=== PATIENT | female | born 1955 | race Caucasian/White ===

== ENCOUNTER 2018-06-20 10:31 | Emergency (ER) | payer MEDICARE ==
[~2018-06-20] VITALS: Ht 160 cm; Wt 100.0 kg
[~2018-06-20 10:31] MED LIST: CELEXA20 MG PO; ENDOCET 10-3251 TAB; ENDOCET 10-3251 TAB PO; PHENERGAN25 M1 PO; PROZAC20 MG PO; ROBAXIN500 MG PO; SYNTHROID125 MCG PO; XANAX1 MG PO
[2018-06-20 10:44] VITALS: Ht 160 cm; Wt 100.0 kg
[2018-06-20 11:10] LABS: BASOPHILS 0.2 % (0-2); EOSINOPHILS 2.4 % (0-7); HEMATOCRIT 45.6 % (36.0-48.0); IMMATURE GRANULOCYTES 0.3 % (0-5); LYMPHOCYTES 30.3 % (15-50); MCH 30.4 pg (26.0-34.0); MCHC 32.9 g/dL (31.0-37.0); MCV 92.3 fL (80.0-100.0); MEAN PLATELET VOLUME 10.3 fL (7.4-10.4); MONOCYTES 10.8 % (2-11); PLATELET COUNT 290 10x3/uL (130-400); RBC 4.94 10x6/uL (4.00-5.40); WBC 8.6 10x3/uL (4.8-10.8)
[2018-06-20 11:27] LABS: ALBUMIN 3.8 g/dL (3.4-5.0); ALKALINE PHOSPHATASE 473 U/L (46-116); ALT (SGPT) 447 U/L (10-68); BILIRUBIN - TOTAL 0.56 mg/dL (0.2-1.3); CALC OSMOLALITY 274 mosm/kg (275-300); CALCIUM 9.8 mg/dL (8.5-10.1); CARBON DIOXIDE 31.9 mmol/L (21.0-32.0); CHLORIDE - SERUM 98 mmol/L (98-107); CREATININE - SERUM 0.9 mg/dL (0.6-1.3); GLUCOSE 105 mg/dL (74-106); POTASSIUM - SERUM 3.9 mmol/L (3.5-5.1); PROTEIN - SERUM 8.7 g/dL (6.4-8.2); SODIUM 136 mmol/L (136-145); UREA NITROGEN 21 mg/dL (7-18); eGFR NON AFRICAN AMERICAN 67 mL/min (90-120)
[2018-06-20 11:37] LABS: BILIRUBIN - DIRECT 0.31 mg/dL (0.00-0.30); BILIRUBIN - INDIRECT 0.25 mg/dL (0.00-1.00); CKMB 0.6 U/L (0.0-3.6)
[2018-06-20 11:39] LABS: TROPONIN-I < 0.017 ng/mL (0.000-0.060)
[2018-06-20] MEDS ORDERED: IBUPROFEN800 MG PO (13:14)
[2018-06-20] MEDS ORDERED: CYCLOBENZAPRINE10 MG PO (13:14)
[2018-06-20 13:15] VITALS: BP 132/68
== END 2018-06-20 13:33 | disposition home or self-care (01) ==
LOC: D.ER 10:31
PROVIDERS: Family Medicine
DX: R94.5 Abnormal results of liver function studies (principal); Z86.73 Personal history of transient ischemic attack (TIA), and cerebral infarction without residual deficits

== ENCOUNTER 2018-07-23 03:06 | Emergency (ER) | payer MEDICARE, MEDICAID ==
[~2018-07-23] VITALS: Ht 160 cm; Wt 103.2 kg
[~2018-07-23 03:06] MED LIST changes: +CYCLOBENZAPRINE10 MG PO; +IBUPROFEN800 MG PO
[2018-07-23 03:15] VITALS: Ht 160 cm; Wt 103.2 kg
[2018-07-23 03:49] LABS: BASOPHILS 0.1 % (0-2); EOSINOPHILS 0.2 % (0-7); HEMOGLOBIN 13.5 g/dL (12-16); IMMATURE GRANULOCYTES 0.1 % (0-5); LYMPHOCYTES 4.1 % (15-50); MCH 30.3 pg (26.0-34.0); MCHC 32.9 g/dL (31.0-37.0); MCV 91.9 fL (80.0-100.0); MEAN PLATELET VOLUME 10.4 fL (7.4-10.4); MONOCYTES 3.6 % (2-11); NEUTROPHILS 91.9 % (40-80); PLATELET COUNT 241 10x3/uL (130-400); RBC 4.46 10x6/uL (4.00-5.40); RDW 13.2 % (11.5-14.5); WBC 9.7 10x3/uL (4.8-10.8)
[2018-07-23 04:02] LABS: ALBUMIN 3.7 g/dL (3.4-5.0); ANION GAP 12.5 mmol/L (8-16); BILIRUBIN - TOTAL 2.81 mg/dL (0.2-1.3); CALCIUM 8.4 mg/dL (8.5-10.1); CARBON DIOXIDE 27.8 mmol/L (21.0-32.0); POTASSIUM - SERUM 3.3 mmol/L (3.5-5.1); PROTEIN - SERUM 7.4 g/dL (6.4-8.2)
[2018-07-23 07:27] LABS: APPEARANCE HAZY (CLEAR); BILIRUBIN NEGATIVE (NEGATIVE); COLOR YELLOW (YELLOW); GLUCOSE NEGATIVE (NEGATIVE); KETONE NEGATIVE (NEGATIVE); NITRITE NEGATIVE (NEGATIVE); PROTEIN NEGATIVE (NEGATIVE)
[2018-07-23 07:28] LABS: BACTERIA FEW /hpf (NONE SEEN); EPITHELIAL CELLS RARE /hpf (0-5); MUCUS <1+ /lpf (NONE SEEN); RED CELLS - URINE RARE /hpf (0-5); TALC POWDER CRYSTALS RARE /hpf (NONE SEEN); WHITE CELLS - URINE 0-5 /hpf (0-5)
[2018-07-23] MEDS ORDERED: PROTONIX40 MG PO (08:34)
[2018-07-23 10:53] VITALS: BP 126/060
[2018-07-24 13:19] LABS: HEPATITIS C ANTIBODY 0.1 (0.0-0.9)
== END 2018-07-23 10:55 | disposition home or self-care (01) ==
LOC: D.ER 03:06
PROVIDERS: Family Medicine
DX: K75.9 Inflammatory liver disease, unspecified (principal); K21.9 Gastro-esophageal reflux disease without esophagitis

== ENCOUNTER 2018-11-06 17:24 | Emergency (ER) | payer MEDICARE, MEDICAID ==
[~2018-11-06 17:24] MED LIST changes: +PROTONIX40 MG PO
[2018-11-06 17:28] VITALS: Ht 160 cm
[2018-11-06 18:38] LABS: BASOPHILS 0.4 % (0-2); EOSINOPHILS 2.5 % (0-7); HEMATOCRIT 37.8 % (36.0-48.0); HEMOGLOBIN 12.3 g/dL (12-16); IMMATURE GRANULOCYTES 0.1 % (0-5); MCH 30.1 pg (26.0-34.0); MCHC 32.5 g/dL (31.0-37.0); MCV 92.4 fL (80.0-100.0); MEAN PLATELET VOLUME 9.8 fL (7.4-10.4); MONOCYTES 8.4 % (2-11); NEUTROPHILS 50.6 % (40-80); RBC 4.09 10x6/uL (4.00-5.40); RDW 12.9 % (11.5-14.5); WBC 7.3 10x3/uL (4.8-10.8)
[2018-11-06 18:40] LABS: PLATELET COUNT 331 10x3/uL (130-400)
[2018-11-06 18:57] LABS: UDS - AMPHET NEGATIVE QUAL (NEGATIVE); UDS - BARB NEGATIVE QUAL (NEGATIVE); UDS - BENZO POSITIVE QUAL (NEGATIVE); UDS - COCAINE NEGATIVE QUAL (NEGATIVE); UDS - OPIATE POSITIVE QUAL (NEGATIVE); UDS - PCP NEGATIVE QUAL (NEGATIVE); UDS - THC NEGATIVE QUAL (NEGATIVE)
[2018-11-06 19:19] LABS: CALC OSMOLALITY 279 mosm/kg (275-300); CALCIUM 8.8 mg/dL (8.5-10.1); CARBON DIOXIDE 25.1 mmol/L (21.0-32.0); CHLORIDE - SERUM 103 mmol/L (98-107); CREATININE - SERUM 0.8 mg/dL (0.6-1.3); GLUCOSE 109 mg/dL (74-106); POTASSIUM - SERUM 3.7 mmol/L (3.5-5.1); SODIUM 139 mmol/L (136-145); THYROID STIMULATING HORMONE 0.58 uIU/mL (0.36-3.74); UREA NITROGEN 14 mg/dL (7-18); eGFR NON AFRICAN AMERICAN 77 mL/min (90-120)
[2018-11-06 19:28] VITALS: BP 147/87
== END 2018-11-06 19:28 | disposition home or self-care (01) ==
LOC: D.ER 17:24
PROVIDERS: Family Medicine
DX: F41.9 Anxiety disorder, unspecified (principal); Z76.5 Malingerer [conscious simulation]; Z86.73 Personal history of transient ischemic attack (TIA), and cerebral infarction without residual deficits

== ENCOUNTER 2019-01-25 18:35 | Emergency (ER) | payer MEDICARE, MEDICAID ==
[~2019-01-25] VITALS: Ht 160 cm; Wt 100.9 kg
[2019-01-25 18:52] VITALS: Ht 160 cm; Wt 100.9 kg
[2019-01-25] MEDS ORDERED: VOLTAREN75 MG PO (19:46)
[2019-01-25 20:20] VITALS: BP 116/56
[2019-01-26] MEDS ORDERED: MELATONIN 3 MG1 TAB PO (17:09)
== END 2019-01-25 20:20 | disposition home or self-care (01) ==
LOC: D.ER 18:35
DX: S89.91XA Unspecified injury of right lower leg, initial encounter (principal); W18.30XA Fall on same level, unspecified, initial encounter; Y93.89 Activity, other specified; Y92.019 Unspecified place in single-family (private) house as the place of occurrence of the external cause

== ENCOUNTER 2019-01-26 15:34 | Inpatient (IN) | payer MEDICARE, MEDICAID ==
[~2019-01-26] VITALS: Ht 152.4 cm; Wt 100.7 kg
[~2019-01-26 15:34] MED LIST changes: +VOLTAREN75 MG PO
[2019-01-26] MEDS ORDERED: MELATONIN 3 MG1 TAB PO (17:09)
[2019-01-26 17:10] VITALS: BP 116/72
[2019-01-26 17:17] VITALS: BP 116/72
--- NOTE | 2019-01-26 17:30 | NUR ---
PATIENT ADMITTED TO ROOM 2213 FROM ER. C/O PAIN TO RIGHT LEG. IMMOBILIZER IN PLACE. LUNGS CLEAR IN ALL LIZAMA BILATERALLY. HEART SOUNDS HEARD IN ALL LIZAMA AT REGULAR RATE AND RHYTHM. DILAUDID MACHINE SETTER AUTOMATIC PUMP IN PLACE. IV STARTED IN RIGHT FOREARM. HAT PLACED IN TOILET FOR UA. PATIENT EDUCATED NOT TO USE BR WITHOUT ASSISTANCE AND TO URINATE IN HAT. WILL CONTINUE TO MONITOR.
[2019-01-26 17:49] LABS: BASOPHILS 0.2 % (0-2); EOSINOPHILS 2.9 % (0-7); HEMATOCRIT 33.3 % (36.0-48.0); HEMOGLOBIN 10.6 g/dL (12-16); IMMATURE GRANULOCYTES 0.1 % (0-5); LYMPHOCYTES 25.7 % (15-50); MCH 29.9 pg (26.0-34.0); MCHC 31.8 g/dL (31.0-37.0); MCV 94.1 fL (80.0-100.0); MONOCYTES 7.7 % (2-11); NEUTROPHILS 63.4 % (40-80); PLATELET COUNT 293 10x3/uL (130-400); RBC 3.54 10x6/uL (4.00-5.40); RDW 13.5 % (11.5-14.5); WBC 10.1 10x3/uL (4.8-10.8)
[2019-01-26 18:19] LABS: ANION GAP 11.8 mmol/L (8-16); CALCIUM 8.4 mg/dL (8.5-10.1); CARBON DIOXIDE 28.4 mmol/L (21.0-32.0); CREATININE - SERUM 0.9 mg/dL (0.6-1.3); POTASSIUM - SERUM 4.2 mmol/L (3.5-5.1)
--- NOTE | 2019-01-26 19:55 | NUR ---
PT RESTING IN BED. ALERT AND ORIENTED. NO SINGS OF DISTRESS. BREATHING EVEN AND UNLABORED. PT STATES NO PROBLEMS AT THIS TIME. IV SITE RT FA IV DRESSING CLEAN DRY AND INTACT. NO SIGNS OF INFECTION. SKIN CLEAN DRY AND INTACT. BOWEL SOUNDS ACTIVE. RT KNEE EMOBILIZER. NO LOWER LEG SWELLING PRESENT. WILL CONTINUE PLAN OF CARE. CALL LIGHT IN REACH. BED LOWERED AND LOCKED. BED RAILS UP X2.
[2019-01-26 22:40] VITALS: BP 101/51
[2019-01-27] VITALS (7 sets, daily range): BP systolic 87–108; BP diastolic 44–71; Ht 152.4 cm; Wt 100.7 kg
--- NOTE | 2019-01-27 04:45 | NUR ---
I have reviewed this patient and I concur with the Shift Assessment completed by the Licensed Practical Nurse today this shift.
--- NOTE | 2019-01-27 08:08 | NUR ---
ALERT AND ORIENTED X 3. LUNGS CLEAR IN ALL LIZAMA BILATERALLY. HEART SOUNDS HEARD IN ALL LIZAMA. REGULAR RATE AND RHYTHM. STATES NO PROBLEMS MOVING BOWELS. DENIES NEEDS AT THIS TIME. WILL CONTINUE TO MONITOR.
--- NOTE | 2019-01-27 09:18 | NUR ---
PRN TORADOL GIVEN FOR PAIN 04/27. WILL MONITOR.
[2019-01-27 10:15] LABS: APPEARANCE CLEAR (CLEAR); BACTERIA FEW /hpf (NONE SEEN); BILIRUBIN NEGATIVE (NEGATIVE); COLOR YELLOW (YELLOW); EPITHELIAL CELLS 0-5 /hpf (0-5); GLUCOSE NEGATIVE (NEGATIVE); KETONE NEGATIVE (NEGATIVE); NITRITE NEGATIVE (NEGATIVE); PROTEIN NEGATIVE (NEGATIVE); WHITE CELLS - URINE 0-5 /hpf (0-5)
[2019-01-27 10:16] LABS: MUCUS <1+ /lpf (NONE SEEN)
[2019-01-27 11:03] LABS: % SATURATION 10 % (15-55); IRON 31 ug/dl (35-150); TOTAL IRON BIND CAPACITY 287 ug/dl (260-445); UNSAT IRON BIND CAPACITY 256 ug/dl (150-375)
--- NOTE | 2019-01-27 11:14 | NUR ---
PATIENT EDUCATED TO USE HAT IN TOILET WHEN USING BATHROOM TO COLLECT STOOL SAMPLE. HAT PLACED IN TOILET. PATIENT VERBALIZED UNDERSTANDING.
--- NOTE | 2019-01-27 12:23 | NUR ---
Rehab Note- Acute Inpatient prescreen order received. The patient has Human insurance and will require a PreAuth prior to an acute inpatient rehab stay. The patient is planned for surgical repair this week per MD progress notes- will need acute work up and surgery completed prior to acute inpatient rehab. Also will need PT & OT Evals for PreAuth process. Will follow at this time. Thank you for this referral! Lala Shelton RN CLinical Liaison, [facility] Rehab
--- NOTE | 2019-01-27 14:40 | NUR ---
PATIENT SITTING UP IN BED. DENIES PAIN. DENIES NEEDS. ATE 100% LUNCH.
--- NOTE | 2019-01-27 16:11 | NUR ---
PRN TORADOL GIVEN FOR BREAKTHROUGH PAIN PER PATIENT REQUEST. WILL CONTINUE TO MONITOR.
--- NOTE | 2019-01-27 16:38 | NUR ---
PATIENT SLEEPING. WILL CONTINUE TO MONITOR
--- NOTE | 2019-01-27 17:22 | NUR ---
IV TO RFA INFILTRATED. RESITED TO LEFT WRIST. WARM COMPRESS APPLIED TO RFA. WILL CONTINUE TO MONITOR.
--- NOTE | 2019-01-27 18:00 | NUR ---
PATIENT SITTING UP IN BED EATING DINNER. DENIES PAIN. DENIES NEEDS. WILL CONTINUE TO MONITOR.
--- NOTE | 2019-01-27 19:55 | NUR ---
PT RESTING IN BED. ALERT AND ORIENTED. PT STATES NO PROBLEMS AT THIS TIME. NO SIGNS OF DISTRESS. BREATHING EVEN AND UNLABORED. IV SITE LT WRIST DRESSING CLEAN DRY AND INTACT. NO SIGNS OF INFECTION. SKIN CLEAN DRY AND INTACT. NO LOWER LEG SWELLING PRESENT. WILL CONTINUE PLAN OF CARE. CALL LIGHT IN REACH. BED LOWERED AND LOCKED. BED RAILS X3.
[2019-01-28 01:33] VITALS: BP 125/79
[2019-01-28 04:48] VITALS: BP 134/80
[2019-01-28 05:18] LABS: BASOPHILS 0.2 % (0-2); EOSINOPHILS 3.2 % (0-7); HEMATOCRIT 31.2 % (36.0-48.0); HEMOGLOBIN 9.6 g/dL (12-16); IMMATURE GRANULOCYTES 0.2 % (0-5); LYMPHOCYTES 25.4 % (15-50); MCH 29.4 pg (26.0-34.0); MCHC 30.8 g/dL (31.0-37.0); MCV 95.7 fL (80.0-100.0); MEAN PLATELET VOLUME 9.6 fL (7.4-10.4); MONOCYTES 7.3 % (2-11); NEUTROPHILS 63.7 % (40-80); PLATELET COUNT 319 10x3/uL (130-400); RBC 3.26 10x6/uL (4.00-5.40); RDW 13.6 % (11.5-14.5); WBC 8.4 10x3/uL (4.8-10.8)
[2019-01-28 05:37] LABS: ANION GAP 11.1 mmol/L (8-16); CREATININE - SERUM 0.9 mg/dL (0.6-1.3); POTASSIUM - SERUM 4.1 mmol/L (3.5-5.1)
[2019-01-28 08:45] VITALS: BP 131/74
[2019-01-28 09:19] LABS: FOLATE (FOLIC ACID) - SERUM >20.0 ng/mL (>3.0)
[2019-01-28 12:40] VITALS: BP 137/64
--- NOTE | 2019-01-28 14:27 | NUR ---
INCENTIVE SPIROMETER EXPLAINED TO PATIENT. RETURNED DEMONSTRATION. IMMOBILIZER PLACED ON PATIENT AND REMINDED TO PRESS CALL BUTTON IF NEEDS TO GET UP.
--- NOTE | 2019-01-28 15:23 | MORECARE ---
CASE MANAGEMENT DISCHARGE SUMMARY PATIENT: MAMTA RAMIREZ UNIT: [id number] ADM DATE: 01/26/19 AGE: 63 : 57 SEX: F ROOM/BED: D.2213 AUTHOR: KEYA,DOC PHYSICIAN: REFERRING PHYSICIAN: EVELINE WHITING MD DATE OF SERVICE: 01/28/19 Discharge Plan Patient Name: MAMTA RAMIREZ Facility: [facility]:[place] : 1955 Planned Disposition: Group Home Facility Anticipated Discharge Date: Discharge Date: Expected LOS: Initial Reviewer: [email or web address] Initial Review Date: 01/26/2019 Generated: 01/28/19 4:22 pm Comments DCP- Discharge Planning Updated by [id number]: Stephanie Lopez on 01/28/19 2:[address] Patient Name: MAMTA RAMIREZ Admission Status: Urgent Accout number: [id number] Admission Date: 01-26-2019 : 1955 Admission Diagnosis: Attending: EVELINE WHITING Current LOS: 2 Anticipated DC Date: Planned Disposition: Group Home Facility Primary Insurance: [employer] CHOICE PPO MCR ADVANT Discharge Planning Comments: CM met with patient to complete initial dc planning assessment. CM educated patient on the CM role and verbal consent given by patient to complete assessment. Patient lives at home by herself where she is independent with her care. At discharge patient plans to go to [facility] and feels this is a safe discharge. RACIEL signed with [facility] and placed in the patient's chart. Patient has cane, crutches, and a shower chair with a handicap bathroom. CM will continue to follow and will assist as needed with dc plans/needs. Hydroelectric Plant Operator: Stephanie Lopez DCPIA - Discharge Planning Initial Assessment Updated by [email or web address]: Stephanie Lopez on 01/28/19 3:07 pm * Is the patient Alert and Oriented? Yes * How many steps to enter\exit or inside your home? * PCP Dave * [facility] * Preadmission Environment Home Alone * ADLs Independent * Equipment Cane Crutch Shower Chair * Verbal permission to speak to the caregivers and representatives has been obtained from the patient. N/A * Community resources currently utilized None * Additional services required to return to the preadmission environment? Yes * Can the patient safely return to the preadmission environment? No * Has this patient been hospitalized within the prior 30 days at any hospital? No Patient Name: MAMTA RAMIREZ Page [phone] at 1523 All edits/amendments must be made on the electronic document DICTATION DATE: 01/28/191521 DIRECTOR OUTPATIENT SERVICES: CURTIS 01/28/191521 RPT#: [id number] DC DATE: STATUS: ADM IN [facility] [address] [place] [address] END OF REPORT
--- NOTE | 2019-01-28 16:04 | NUR ---
OBTAINED CONSENT FOR SURGERY TOMORROW. PATIENT STATES, "AFTER THE OPERATION WHEN I'M COMING OUT OF ANESTHESIA I FREAK OUT AND MY BODY GOES INTO SHOCK BECAUSE MY BODY KNOWS IT'S BEING INVADED." REQUESTS ANTIANXIETY MED BEFORE SURGERY. GETS XANAX Q12 PRN.
[2019-01-28 16:45] VITALS: BP 122/61
--- NOTE | 2019-01-28 18:40 | NUR ---
I have reviewed this patient and I concur with the Shift Assessment completed by the Licensed Practical Nurse today this shift.
--- NOTE | 2019-01-28 20:10 | NUR ---
PT RESTING IN BED. ALERT AND ORIENTED. NO SIGNS OF DISTRESS. BREATHING EVEN AND UNLABORED. PT STATES NO PROBLEMS AT THIS TIME. IV SITE LT WRIST DRESSING CLEAN DRY AND INTACT. NO SIGNS OF INFECTION. SKIN CLEAN DRY AND INTACT. BOWEL SOUNDS ACTIVE. NO LOWER LEG SWELLING PRESENT. SCDS ON. RT LEG KNEE EMOBLIZER ON. WILL CONTINUE PLAN OF CARE. CALL LIGHT IN REACH. BED LOWERED AND LOCKED. BED RAILS UPX1.
[2019-01-28 21:47] VITALS: BP 112/71
[2019-01-29 01:16] VITALS: BP 124/74
--- NOTE | 2019-01-29 03:34 | NUR ---
I have reviewed this patient and I concur with the Shift Assessment completed by the Licensed Practical Nurse today this shift.
[2019-01-29 04:37] VITALS: BP 120/64
[2019-01-29 04:49] LABS: BASOPHILS 0.3 % (0-2); EOSINOPHILS 6.1 % (0-7); HEMATOCRIT 31.6 % (36.0-48.0); HEMOGLOBIN 9.8 g/dL (12-16); IMMATURE GRANULOCYTES 0.2 % (0-5); LYMPHOCYTES 38.4 % (15-50); MCH 29.5 pg (26.0-34.0); MCV 95.2 fL (80.0-100.0); MEAN PLATELET VOLUME 9.5 fL (7.4-10.4); MONOCYTES 9.1 % (2-11); NEUTROPHILS 45.9 % (40-80); PLATELET COUNT 311 10x3/uL (130-400); RBC 3.32 10x6/uL (4.00-5.40); RDW 13.4 % (11.5-14.5)
[2019-01-29 05:00] LABS: WBC 5.9 10x3/uL (4.8-10.8)
[2019-01-29 05:08] LABS: ANION GAP 8.7 mmol/L (8-16); CARBON DIOXIDE 29.4 mmol/L (21.0-32.0); CREATININE - SERUM 0.9 mg/dL (0.6-1.3); POTASSIUM - SERUM 4.1 mmol/L (3.5-5.1)
--- NOTE | 2019-01-29 08:05 | NUR ---
PATIENT SITTING IN CHAIR WORKING PUZZLE. DISPLAYING SIGNS OF SEVERE ANXIETY. WORRIED ABOUT SURGERY AND BEING GIVEN DILAUDID AGAIN POST-OP. I EXPLAINED WE WOULD NOT GIVE DILAUDID. PATIENT REQUESTS DEMORAL FOR POST-OP PAIN.
[2019-01-29 10:39] VITALS: BP 134/57
--- NOTE | 2019-01-29 12:12 | MORECARE ---
CASE MANAGEMENT DISCHARGE SUMMARY PATIENT: MAMTA RAMIREZ UNIT: [id number] ADM DATE: 01/26/19 AGE: 63 : 57 SEX: F ROOM/BED: D.2213 AUTHOR: KEYA,DOC PHYSICIAN: REFERRING PHYSICIAN: EVELINE WHITING MD DATE OF SERVICE: 01/29/19 Discharge Plan Patient Name: MAMTA RAMIREZ Facility: [facility]:[place] : 1955 Planned Disposition: Long-Term Facility Anticipated Discharge Date: Discharge Date: Expected LOS: Initial Reviewer: [email or web address] Initial Review Date: 01/26/2019 Generated: 01/29/19 1:12 pm Comments DCP- Discharge Planning Updated by [id number]: Stephanie Lopez on 01/29/19 11:[address] Clinical sent to [facility], spoke with Minna DCP- Discharge Planning Updated by [email or web address]: Stephanie Lopez on 01/28/19 2:[address] Patient Name: MAMTA RAMIREZ Admission Status: Urgent Accout number: [id number] Admission Date: 01-26-2019 : 1955 Admission Diagnosis: Attending: EVELINE WHITING Current LOS: 2 Anticipated DC Date: Planned Disposition: Long-Term Facility Primary Insurance: [employer] CHOICE PPO MCR ADVANT Discharge Planning Comments: CM met with patient to complete initial dc planning assessment. CM educated patient on the CM role and verbal consent given by patient to complete assessment. Patient lives at home by herself where she is independent with her care. At discharge patient plans to go to [facility] and feels this is a safe discharge. RACIEL signed with [facility] and placed in the patient's chart. Patient has cane, crutches, and a shower chair with a handicap bathroom. CM will continue to follow and will assist as needed with dc plans/needs. Air Intercept Controller: Stephanie Lopez DCPIA - Discharge Planning Initial Assessment Updated by [email or web address]: Stephanie Lopez on 01/28/19 3:07 pm * Is the patient Alert and Oriented? Yes * How many steps to enter\exit or inside your home? * PCP Dave * [facility] * Preadmission Environment Home Alone * ADLs Independent * Equipment Cane Crutch Shower Chair * Verbal permission to speak to the caregivers and representatives has been obtained from the patient. N/A * Community resources currently utilized None * Additional services required to return to the preadmission environment? Yes * Can the patient safely return to the preadmission environment? No * Has this patient been hospitalized within the prior 30 days at any hospital? No External Providers External Provider: [facility] Next Contact Date: Service Request Date: Service Type: Resolution: Reviewer: Comments: Last DP export: 01/28/19 2:23 p Patient Name: MAMTA RAMIREZ Page [phone] at 1212 All edits/amendments must be made on the electronic document DICTATION DATE: 01/29/19 121 EARTH SCIENCES PROFESSOR: CURTIS 01/29/19 1212 RPT#: [id number] DC DATE: STATUS: ADM IN [facility] [address] [place] [address] END OF REPORT
[2019-01-29 15:11] VITALS: BP 132/60
--- NOTE | 2019-01-29 15:15 | NUR ---
RECEIVED PATIENT BACK TO FLOOR FROM [facility], RECOVERY. VS STABLE. NO COMPLAINTS OF PAIN. ASSISTED PATIENT ONTO BEDPAN - VOIDED. MADE COMFORTABLE. ALL NEEDS MET AT THIS TIME.
--- NOTE | 2019-01-29 17:39 | NUR ---
MEPILEX BORDER DRSG APPLIED TO BILAT HEELS. SCD TO LEFT LEG, PLEXI PULSE TO RIGHT FOOT. PATIENT SITTING UP IN BED EATING DINNER. APPETITE GOOD. ALL NEEDS MET AT THIS TIME.
--- NOTE | 2019-01-29 18:36 | NUR ---
PATIENT'S CALL LIGHT WAS ON SO I RESPONDED. WHEN I WENT INTO THE ROOM PATIENT WAS UP ON A CRUTCH USING IT TO REACH THE OTHER CRUTCH. I ASKED HER WHAT SHE WAS DOING UP. PATIENT STATED, "I HAVE TO GO THO THE BATHROOM." I TOLD HER I WOULD GET HER A BEDPAN. SHE STATED, "I HAVE TO TRY SOMETIME." AND PUT THE OTHER CRUTCH UNDER HER ARM. AT THAT TIME I WAS HOLDING HER UNDER THE OTHER ARM THAT HAD THE CRUTCH UNDER IT. HER RIGHT LEG GAVE OUT AND SHE WENT DOWN WITH ME HOLDING HER. THE RIGHT (OPERATIVE) KNEE HIT THE GROUND. I CALL FOR HELP OVER [facility]ALKIE. DANIEL ARECHIGA CAME IN AND TOGETHER WE LIFTED PATIENT BACK INTO THE BED. UPON EXAMINATION OF SURGICAL SITE, AMIE WERE IN PLACE AND CLOTTED BLOOD WAS STUCK TO GAUZE. AIR VALVE MECHANIC, FELIPE, CALLED. DR. LANG AND REPORTED. ORDERED LATERAL VIEW XRAY, ICE, AND ELEVATE LEG. EMERGENCY CONTACT, [place], NEIGHBOR, CALLED. LEFT MESSAGE ON MACHINE STATING THE REASON FOR CALL AND CALL BACK NUMBER.
[2019-01-29 20:20] VITALS: BP 118/59
[2019-01-30] VITALS (7 sets, daily range): BP systolic 106–132; BP diastolic 60–73
[2019-01-30 04:57] LABS: BASOPHILS 0.2 % (0-2); EOSINOPHILS 0.2 % (0-7); HEMATOCRIT 30.5 % (36.0-48.0); HEMOGLOBIN 9.7 g/dL (12-16); IMMATURE GRANULOCYTES 0.3 % (0-5); MCH 30.2 pg (26.0-34.0); MCHC 31.8 g/dL (31.0-37.0); MEAN PLATELET VOLUME 9.6 fL (7.4-10.4); MONOCYTES 6.9 % (2-11); NEUTROPHILS 74.4 % (40-80); PLATELET COUNT 312 10x3/uL (130-400); RBC 3.21 10x6/uL (4.00-5.40); RDW 13.2 % (11.5-14.5)
[2019-01-30 05:03] LABS: WBC 9.6 10x3/uL (4.8-10.8)
[2019-01-30 05:38] LABS: ANION GAP 11.2 mmol/L (8-16); CALCIUM 7.9 mg/dL (8.5-10.1); CARBON DIOXIDE 27.7 mmol/L (21.0-32.0); CREATININE - SERUM 0.9 mg/dL (0.6-1.3); POTASSIUM - SERUM 3.9 mmol/L (3.5-5.1)
--- NOTE | 2019-01-30 09:00 | NUR ---
PATIENT IN BED WITH IV INTACT. NO COMPLAINTS AT THIS TIME IV INTACT. CALL LIGHT WITHIN REACH.
--- NOTE | 2019-01-30 09:44 | MORECARE ---
CASE MANAGEMENT DISCHARGE SUMMARY PATIENT: MAMTA RAMIREZ UNIT: [id number] ADM DATE: 01/26/19 AGE: 63 : 57 SEX: F ROOM/BED: D.2213 AUTHOR: KEYA,DOC PHYSICIAN: REFERRING PHYSICIAN: EVELINE WHITING MD DATE OF SERVICE: 01/30/19 Discharge Plan Patient Name: MAMTA RAMIREZ Facility: [facility]:[place] : 1955 Planned Disposition: Group Home Facility Anticipated Discharge Date: Discharge Date: Expected LOS: Initial Reviewer: [email or web address] Initial Review Date: 01/26/2019 Generated: 01/30/19 10:43 am Comments DCP- Discharge Planning Updated by [email or web address]: Stephanie Lopez on 01/29/19 11:[address] Clinical sent to [facility], spoke with Minna DCP- Discharge Planning Updated by [id number]: Stephanie Lopez on 01/28/19 2:[address] Patient Name: MAMTA RAMIREZ Admission Status: Urgent Accout number: [id number] Admission Date: 01-26-2019 : 1955 Admission Diagnosis: Attending: EVELINE WHITING Current LOS: 2 Anticipated DC Date: Planned Disposition: Group Home Facility Primary Insurance: [employer] CHOICE PPO MCR ADVANT Discharge Planning Comments: CM met with patient to complete initial dc planning assessment. CM educated patient on the CM role and verbal consent given by patient to complete assessment. Patient lives at home by herself where she is independent with her care. At discharge patient plans to go to [facility] and feels this is a safe discharge. RACIEL signed with [facility] and placed in the patient's chart. Patient has cane, crutches, and a shower chair with a handicap bathroom. CM will continue to follow and will assist as needed with dc plans/needs. Behavioral Health Counselor: Stephanie Lopez DCPIA - Discharge Planning Initial Assessment Updated by [email or web address]: Stephanie Lopez on 01/28/19 3:07 pm * Is the patient Alert and Oriented? Yes * How many steps to enter\exit or inside your home? * PCP Dave * [facility] * Preadmission Environment Home Alone * ADLs Independent * Equipment Cane Crutch Shower Chair * Verbal permission to speak to the caregivers and representatives has been obtained from the patient. N/A * Community resources currently utilized None * Additional services required to return to the preadmission environment? Yes * Can the patient safely return to the preadmission environment? No * Has this patient been hospitalized within the prior 30 days at any hospital? No External Providers External Provider: DICK Jo Next Contact Date: Service Request Date: Service Type: Resolution: Reviewer: Comments: Last DP export: 01/29/19 11:12 a Patient Name: MAMTA RAMIREZ Page [phone] at 0944 All edits/amendments must be made on the electronic document DICTATION DATE: 01/30/19942 DAG COATER: CURTIS 01/30/19942 RPT#: [id number] DC DATE: STATUS: ADM IN [facility] [address] [place] [address] END OF REPORT
--- NOTE | 2019-01-30 09:53 | MORECARE ---
CASE MANAGEMENT DISCHARGE SUMMARY PATIENT: MAMTA RAMIREZ UNIT: [id number] ADM DATE: 01/26/19 AGE: 63 : 57 SEX: F ROOM/BED: D.2213 AUTHOR: BRYAN LAURA PHYSICIAN: REFERRING PHYSICIAN: EVELINE WHITING MD DATE OF SERVICE: 01/30/19 Discharge Plan Patient Name: MAMTA RAMIREZ Facility: [facility]:[place] : 1955 Planned Disposition: Retirement Facility Anticipated Discharge Date: Discharge Date: Expected LOS: Initial Reviewer: [email or web address] Initial Review Date: 01/26/2019 Generated: 01/30/19 10:53 am Comments DCP- Discharge Planning Updated by [id number]: Stephanie Lopez on 01/30/19 8:[address] [facility] SENT DCP- Discharge Planning Updated by [id number]: Stephanie Lopez on 01/29/19 11:[address] Clinical sent to [facility] [place] DCP- Discharge Planning Updated by [id number]: Stephanie Lopez on 01/28/19 2:[address] Patient Name: MAMTA RAMIREZ Admission Status: Urgent Accout number: [id number] Admission Date: 01-26-2019 : 1955 Admission Diagnosis: Attending: EVELINE WHITING Current LOS: 2 Anticipated DC Date: Planned Disposition: Retirement Facility Primary Insurance: [employer] CHOICE PPO MCR ADVANT Discharge Planning Comments: CM met with patient to complete initial dc planning assessment. CM educated patient on the CM role and verbal consent given by patient to complete assessment. Patient lives at home by herself where she is independent with her care. At discharge patient plans to go to [facility] and feels this is a safe discharge. RACIEL signed with [facility] and placed in the patient's chart. Patient has cane, crutches, and a shower chair with a handicap bathroom. CM will continue to follow and will assist as needed with dc plans/needs. Group Managing Director: Stephanie Lopez DCPIA - Discharge Planning Initial Assessment Updated by [email or web address]: Stephanie Lopez on 01/28/19 3:07 pm * Is the patient Alert and Oriented? Yes * How many steps to enter\exit or inside your home? * PCP Dave * [facility] * Preadmission Environment Home Alone * ADLs Independent * Equipment Cane Crutch Shower Chair * Verbal permission to speak to the caregivers and representatives has been obtained from the patient. N/A * Community resources currently utilized None * Additional services required to return to the preadmission environment? Yes * Can the patient safely return to the preadmission environment? No * Has this patient been hospitalized within the prior 30 days at any hospital? No Last DP export: 01/30/19 8:44 a Patient Name: MAMTA RAMIREZ Page [phone] at 0953 All edits/amendments must be made on the electronic document DICTATION DATE: 01/30/19951 BENEFITS SALES CONSULTANT: CURTIS 01/30/19951 RPT#: [id number] DC DATE: STATUS: ADM IN [facility] [address] [place] [address] END OF REPORT
[2019-01-30] MEDS ORDERED: PERCOCET 10-321 EAC1 PO (11:56)
[2019-01-30] MEDS ORDERED: ELIQUIS2.5 MG PO (11:57)
--- NOTE | 2019-01-30 13:00 | NUR ---
DRESSING TO KNEE CHANGED AT THIS TIME. REMOVED OLD DRESSING AND CLEANED INCISION WITH SALINE. INCISION CLEAN AND DRY WITH SUTURES INTACT. AQUACEL PLACED OVER INCISION AND BANDAID PLACED OVER SMALL SUTURE SITE. SUTURE ABOVE LEFT CELIA. PATIENT TOLERATED WITH NO PAIN. IV INTACT. NO COMPLAINTS. CALL LIGHT WITHIN REACH.
--- NOTE | 2019-01-30 15:48 | MORECARE ---
CASE MANAGEMENT DISCHARGE SUMMARY PATIENT: MAMTA RAMIREZ UNIT: [id number] ADM DATE: 01/26/19 AGE: 63 : 57 SEX: F ROOM/BED: D.2213 AUTHOR: KEYA,DOC PHYSICIAN: REFERRING PHYSICIAN: EVELINE WHITING MD DATE OF SERVICE: 01/30/19 Discharge Plan Patient Name: MAMTA RAMIREZ Facility: [facility]:[place] : 1955 Planned Disposition: Half-Way Facility Anticipated Discharge Date: Discharge Date: Expected LOS: Initial Reviewer: [email or web address] Initial Review Date: 01/26/2019 Generated: 01/30/19 4:48 pm Comments DCP- Discharge Planning Updated by [email or web address]: Stephanie Lopez on 01/30/19 2:[address] Patient is clinically accepted, waiting for insurance auth patient will go to the [facility] when her insurance approves DCP- Discharge Planning Updated by [id number]: Stephanie Lopez on 01/30/19 8:[address] [facility] SENT DCP- Discharge Planning Updated by [email or web address]: Stephanie Lopez on 01/29/19 11:[address] Clinical sent to [facility], spoke with Minna DCP- Discharge Planning Updated by [id number]: Stephanie Lopez on 01/28/19 2:[address] Patient Name: MAMTA RAMIREZ Admission Status: Urgent Accout number: [id number] Admission Date: 01-26-2019 : 1955 Admission Diagnosis: Attending: EVELINE WHITING Current LOS: 2 Anticipated DC Date: Planned Disposition: Half-Way Facility Primary Insurance: [employer] CHOICE PPO MCR ADVANT Discharge Planning Comments: CM met with patient to complete initial dc planning assessment. CM educated patient on the CM role and verbal consent given by patient to complete assessment. Patient lives at home by herself where she is independent with her care. At discharge patient plans to go to [facility] and feels this is a safe discharge. RACIEL signed with The [facility] and placed in the patient's chart. Patient has cane, crutches, and a shower chair with a handicap bathroom. CM will continue to follow and will assist as needed with dc plans/needs. Tire Balancer: Stephanie Lopez DCPIA - Discharge Planning Initial Assessment Updated by [email or web address]: Stephanie Lopez on 01/28/19 3:07 pm * Is the patient Alert and Oriented? Yes * How many steps to enter\exit or inside your home? * PCP Dave * [facility] * Preadmission Environment Home Alone * ADLs Independent * Equipment Cane Crutch Shower Chair * Verbal permission to speak to the caregivers and representatives has been obtained from the patient. N/A * Community resources currently utilized None * Additional services required to return to the preadmission environment? Yes * Can the patient safely return to the preadmission environment? No * Has this patient been hospitalized within the prior 30 days at any hospital? No Last DP export: 01/30/19 8:53 a Patient Name: MAMTA RAMIREZ Page [phone] at 1548 All edits/amendments must be made on the electronic document DICTATION DATE: 01/30/191547 FLOOR POLISHER: CURTIS 01/30/191547 RPT#: [id number] DC DATE: STATUS: ADM IN [facility] [address] [place] [address] END OF REPORT
--- NOTE | 2019-01-30 18:09 | NUR ---
PATIENT IN BED WITH IV INTACT. NO COMPLAINTS OR SIGNS OF DISTRESS. DRESSING CLEAN AND DRY. CALL LIGHT WITHIN REACH.
--- NOTE | 2019-01-30 19:30 | NUR ---
PT ALERT AND ORIENTED WHEN ENTERING THE ROOM. PT APPEARS IRRITABLE. PT STATES THAT PAIN CONTROL REGIMEN IS "RIDICULOUS". EXPLAINED TO PATIENT THAT SHE DOES HAVE PERCOCET BUT ALSO TORADAL THAT IS AN ANTI-INFLAMMATORY THAT WORKS SEPARATELY. PT STATES THAT SHE NEEDS MEDICATION THAT WILL TAKE ALL OF THE PAIN AWAY. EXPLAINED TO PATIENT THAT GOAL IS TO MAKE PAIN TOLERABLE. PT STATED UNDERSTANDING. REQUESTED WARM PACK. PT HAPPIER WHEN LEAVING ROOM. HAS CALL LIGHT IN HAND. REMOVED PLEXI PULSE THAT WAS ON RIGHT FOOT. EXPLAINED IMPORTANCE OF VENOUS RETURN DEVICES. PT STATES THAT SHE "JUST NEEDS A BREAK" AT THIS TIME. WEARING LEFT SCD. INCISION WITH DRESSING APPLIED FROM DAY SHIFT. CLEAN DRY AND INTACT. CPOC.
--- NOTE | 2019-01-30 21:00 | NUR ---
ADMINISTERED PERCOET PER REQUEST. PT RATES PAIN A 10 BUT DOES SO IN A CALM VOICE AND DOES NOT APPEAR IN ANY OTHER DISTRESS. PT STAETS PERCOCET NEVER WORKS BUT SHE WANTS TO TAKE IT RIGHT NOW ANYWAYS. WILL REASSESS PT TO SEE IF ANY OTHER MEDICATIONS WILL NEED TO BE ADMINISTERED FOR PAIN CONTROL.
--- NOTE | 2019-01-30 21:49 | NUR ---
REASSESED PT PAIN LEVEL.PT STATES "I'M STILL HURTING" ASKED PT TO RATE PAIN AND STATES 8/10. PT REQUESTED "OTHER PAIN MEDICINE" INSTRUCTED PT THAT SHE HAS TYLENOL OR TORADOL AVAILABLE. THEN INSTRUCTED ON THE TIMES BETWEEN THE TWO AND WHEN CAN HAVE AGAIN. PT STATED UNDERSTANDING. ASKS FOR TORADOL.
--- NOTE | 2019-01-30 22:04 | NUR ---
ASSISTED IN REPOSITIONING PT. ADMINISTERED TORADOL. NAZIA ROWELL ON.
--- NOTE | 2019-01-31 04:42 | NUR ---
I have reviewed this patient and I concur with the Shift Assessment completed by the Licensed Practical Nurse today this shift.
[2019-01-31 06:43] LABS: BASOPHILS 0.4 % (0-2); EOSINOPHILS 3.9 % (0-7); HEMATOCRIT 29.5 % (36.0-48.0); IMMATURE GRANULOCYTES 0.1 % (0-5); LYMPHOCYTES 35.4 % (15-50); MCH 29.4 pg (26.0-34.0); MCHC 30.5 g/dL (31.0-37.0); MCV 96.4 fL (80.0-100.0); MEAN PLATELET VOLUME 9.8 fL (7.4-10.4); MONOCYTES 10.1 % (2-11); NEUTROPHILS 50.1 % (40-80); PLATELET COUNT 297 10x3/uL (130-400); RBC 3.06 10x6/uL (4.00-5.40); RDW 13.6 % (11.5-14.5)
[2019-01-31 06:50] LABS: WBC 6.9 10x3/uL (4.8-10.8)
[2019-01-31 07:17] LABS: ANION GAP 11.4 mmol/L (8-16); CALCIUM 7.6 mg/dL (8.5-10.1); CARBON DIOXIDE 26.8 mmol/L (21.0-32.0); CREATININE - SERUM 0.9 mg/dL (0.6-1.3)
[2019-01-31 07:18] LABS: POTASSIUM - SERUM 3.2 mmol/L (3.5-5.1)
[2019-01-31 09:19] VITALS: BP 119/67
--- NOTE | 2019-01-31 10:04 | MORECARE ---
CASE MANAGEMENT DISCHARGE SUMMARY PATIENT: MAMTA RAMIREZ UNIT: [id number] ADM DATE: 01/26/19 AGE: 63 : 57 SEX: F ROOM/BED: D.2213 AUTHOR: KEYA,DOC PHYSICIAN: REFERRING PHYSICIAN: EVELINE WHITING MD DATE OF SERVICE: 01/31/19 Discharge Plan Patient Name: MAMTA RAMIREZ Facility: [facility]:[place] : 1955 Planned Disposition: Senior Care Facility Anticipated Discharge Date: Discharge Date: Expected LOS: Initial Reviewer: [email or web address] Initial Review Date: 01/26/2019 Generated: 01/31/19 11:04 am Comments DCP- Discharge Planning Updated by [email or web address]: Esther Pérez on 01/31/19 9:[address] TELEPHONE CALL TO THE [facility]. THEY ARE NOT EXPECTING TO ADMIT THIS PATIENT OVER THE WEEKEND. AWAITING INSURANCE AUTH. DCP- Discharge Planning Updated by [email or web address]: Stephanie Lopez on 01/30/19 2:[address] Patient is clinically accepted, waiting for insurance auth patient will go to the [facility] when her insurance approves DCP- Discharge Planning Updated by [id number]: Stephanie Lopez on 01/30/19 8:[address] ROSA SENT DCP- Discharge Planning Updated by [email or web address]: Stephanie Lopez on 01/29/19 11:[address] Clinical sent to [facility], spoke with Minna DCP- Discharge Planning Updated by [email or web address]: Stephanie Lopez on 01/28/19 2:[address] Patient Name: MAMTA RAMIREZ Admission Status: Urgent Accout number: [id number] Admission Date: 01-26-2019 : 1955 Admission Diagnosis: Attending: EVELINE WHITING Current LOS: 2 Anticipated DC Date: Planned Disposition: Senior Care Facility Primary Insurance: [employer] CHOICE PPO MCR ADVANT Discharge Planning Comments: CM met with patient to complete initial dc planning assessment. CM educated patient on the CM role and verbal consent given by patient to complete assessment. Patient lives at home by herself where she is independent with her care. At discharge patient plans to go to [facility] and feels this is a safe discharge. RACIEL signed with The [facility] and placed in the patient's chart. Patient has cane, crutches, and a shower chair with a handicap bathroom. CM will continue to follow and will assist as needed with dc plans/needs. Stonemason Apprentice: Stephanie Lopez DCPIA - Discharge Planning Initial Assessment Updated by [email or web address]: Stephanie Lopez on 01/28/19 3:07 pm * Is the patient Alert and Oriented? Yes * How many steps to enter\exit or inside your home? * PCP Dave * [facility] * Preadmission Environment Home Alone * ADLs Independent * Equipment Cane Crutch Shower Chair * Verbal permission to speak to the caregivers and representatives has been obtained from the patient. N/A * Community resources currently utilized None * Additional services required to return to the preadmission environment? Yes * Can the patient safely return to the preadmission environment? No * Has this patient been hospitalized within the prior 30 days at any hospital? No Last DP export: 01/30/19 2:48 p Patient Name: MAMTA RAMIREZ Page 44688 at 1004 All edits/amendments must be made on the electronic document DICTATION DATE: 01/31/19 100 FAMILY PRACTICE PHYSICIAN: CURTIS 01/31/19 100 RPT#: [id number] DC DATE: STATUS: ADM IN [facility] [address] [place] [address] END OF REPORT
[2019-01-31 14:25] VITALS: BP 137/70
[2019-01-31 18:05] VITALS: BP 124/70
--- NOTE | 2019-01-31 18:16 | NUR ---
PATIENT IN BED WITH NO COMPLAINTS OR SIGNS OF DISTRESS. ASSISTED TO BR AND BACK TO BED. IV INTACT. NO COMPLAINTS. BA ON. CALL LIGHT WITHIN REACH. SCD AND PLEXI PULSE ON AND WORKING.
[2019-01-31 20:00] VITALS: BP 123/69
[2019-02-01] VITALS: BP 125/58
--- NOTE | 2019-02-01 03:26 | NUR ---
PT RESTING WITH NO SIGNS OR SYMPTOMS OF DISTRESS AT THIS TIME. EYES CLOSED. UNLABORED RESPIRATIONS. CALL LIGHT IN REACH.
[2019-02-01 04:00] VITALS: BP 129/61
--- NOTE | 2019-02-01 04:22 | NUR ---
I have reviewed this patient and I concur with the Shift Assessment completed by the Licensed Practical Nurse today this shift.
[2019-02-01 05:57] LABS: BASOPHILS 0.3 % (0-2); EOSINOPHILS 5.6 % (0-7); HEMATOCRIT 31.5 % (36.0-48.0); HEMOGLOBIN 9.8 g/dL (12-16); IMMATURE GRANULOCYTES 0.2 % (0-5); LYMPHOCYTES 34.2 % (15-50); MCHC 31.1 g/dL (31.0-37.0); MCV 96.3 fL (80.0-100.0); MEAN PLATELET VOLUME 9.6 fL (7.4-10.4); MONOCYTES 9.7 % (2-11); PLATELET COUNT 294 10x3/uL (130-400); RBC 3.27 10x6/uL (4.00-5.40); RDW 13.4 % (11.5-14.5); WBC 5.9 10x3/uL (4.8-10.8)
[2019-02-01 06:30] LABS: CALC OSMOLALITY 278 mosm/kg (275-300); CALCIUM 8.2 mg/dL (8.5-10.1); CARBON DIOXIDE 28.1 mmol/L (21.0-32.0); CHLORIDE - SERUM 105 mmol/L (98-107); CREATININE - SERUM 0.8 mg/dL (0.6-1.3); GLUCOSE 98 mg/dL (74-106); POTASSIUM - SERUM 3.9 mmol/L (3.5-5.1); SODIUM 139 mmol/L (136-145); UREA NITROGEN 14 mg/dL (7-18); eGFR NON AFRICAN AMERICAN 77 mL/min (90-120)
--- NOTE | 2019-02-01 07:45 | NUR ---
PATIENT IN BED WITH EYES CLOSED RESTING QUIETLY AT THIS TIME. IV INTACT. CALL LIGHT WITHIN REACH.
[2019-02-01 10:10] VITALS: BP 141/77
[2019-02-01 14:23] VITALS: BP 121/59
[2019-02-01 16:00] VITALS: BP 144/75
--- NOTE | 2019-02-01 18:45 | NUR ---
PATIENT IN BED WITH IV ITNACT. NO COMPLAINTS OR SIGNS OF DISTRESS. CALL LIGHT WITHIN REACH.
[2019-02-01 20:00] VITALS: BP 116/55
[2019-02-02] VITALS: BP 118/59
[2019-02-02 03:00] VITALS: BP 120/63
[2019-02-02 04:53] LABS: BASOPHILS 0.5 % (0-2); EOSINOPHILS 5.8 % (0-7); HEMATOCRIT 29.3 % (36.0-48.0); HEMOGLOBIN 9.2 g/dL (12-16); IMMATURE GRANULOCYTES 0.3 % (0-5); LYMPHOCYTES 37.2 % (15-50); MCH 29.8 pg (26.0-34.0); MCHC 31.4 g/dL (31.0-37.0); MCV 94.8 fL (80.0-100.0); MEAN PLATELET VOLUME 9.6 fL (7.4-10.4); NEUTROPHILS 47.2 % (40-80); PLATELET COUNT 279 10x3/uL (130-400); RBC 3.09 10x6/uL (4.00-5.40); RDW 13.4 % (11.5-14.5); WBC 6.4 10x3/uL (4.8-10.8)
[2019-02-02 05:00] LABS: CALC OSMOLALITY 281 mosm/kg (275-300); CALCIUM 7.9 mg/dL (8.5-10.1); CARBON DIOXIDE 27.1 mmol/L (21.0-32.0); CHLORIDE - SERUM 107 mmol/L (98-107); CREATININE - SERUM 0.7 mg/dL (0.6-1.3); GLUCOSE 96 mg/dL (74-106); POTASSIUM - SERUM 3.9 mmol/L (3.5-5.1); SODIUM 142 mmol/L (136-145); UREA NITROGEN 11 mg/dL (7-18); eGFR NON AFRICAN AMERICAN 90 mL/min (90-120)
--- NOTE | 2019-02-02 05:05 | NUR ---
PT IN BED IN LOW FOWLERS POSITION. ALERT AND ORIENTED X4. RESPIRATIONS EVEN AND UNLABORED. VITAL SIGNS STABLE AND AFEBRILE. NO VISUAL CUES OF DISTRESS NOTED. DENIES ANY OTHER NEEDS AT THIS TIME. BED LOW, SIDE RAILS UP X2. CALL LIGHT IN REACH. WILL CONTINUE TO MONITOR.
[2019-02-02 09:23] VITALS: BP 147/76
--- NOTE | 2019-02-02 10:04 | MORECARE ---
CASE MANAGEMENT DISCHARGE SUMMARY PATIENT: MAMTA RAMIREZ UNIT: [id number] ADM DATE: 01/26/19 AGE: 63 : 57 SEX: F ROOM/BED: D.2213 AUTHOR: KEYA,DOC PHYSICIAN: REFERRING PHYSICIAN: EVELINE WHITING MD DATE OF SERVICE: 02/02/19 Discharge Plan Patient Name: MAMTA RAMIREZ Facility: [facility]:[place] : 1955 Planned Disposition: Jail Facility Anticipated Discharge Date: 02/02/19 Discharge Date: Expected LOS: 7 Initial Reviewer: [email or web address] Initial Review Date: 01/26/2019 Generated: 02/02/19 11:03 am Comments DCP- Discharge Planning Updated by [email or web address]: Esther Pérez on 01/31/19 9:[address] TELEPHONE CALL TO THE [facility]. THEY ARE NOT EXPECTING TO ADMIT THIS PATIENT OVER THE WEEKEND. AWAITING INSURANCE AUTH. DCP- Discharge Planning Updated by [id number]: Stephanie Lopez on 01/30/19 2:[address] Patient is clinically accepted, waiting for insurance auth patient will go to the [facility] when her insurance approves DCP- Discharge Planning Updated by [email or web address]: Stephanie Lopez on 01/30/19 8:[address] ROSA SENT DCP- Discharge Planning Updated by [id number]: Stephanie Lopez on 01/29/19 11:[address] Clinical sent to [facility], spoke with Minna DCP- Discharge Planning Updated by [email or web address]: Stephanie Lopez on 01/28/19 2:[address] Patient Name: MAMTA RAMIREZ Admission Status: Urgent Accout number: [id number] Admission Date: 01-26-2019 : 1955 Admission Diagnosis: Attending: EVELINE WHITING Current LOS: 2 Anticipated DC Date: Planned Disposition: Jail Facility Primary Insurance: [employer] CHOICE PPO MCR ADVANT Discharge Planning Comments: CM met with patient to complete initial dc planning assessment. CM educated patient on the CM role and verbal consent given by patient to complete assessment. Patient lives at home by herself where she is independent with her care. At discharge patient plans to go to [facility] and feels this is a safe discharge. RACIEL signed with [facility] and placed in the patient's chart. Patient has cane, crutches, and a shower chair with a handicap bathroom. CM will continue to follow and will assist as needed with dc plans/needs. Evaluation Specialist: Stephanie Lopez DCPIA - Discharge Planning Initial Assessment Updated by [email or web address]: Stephanie Lopez on 01/28/19 3:07 pm * Is the patient Alert and Oriented? Yes * How many steps to enter\exit or inside your home? * PCP Dave * [facility] * Preadmission Environment Home Alone * ADLs Independent * Equipment Cane Crutch Shower Chair * Verbal permission to speak to the caregivers and representatives has been obtained from the patient. N/A * Community resources currently utilized None * Additional services required to return to the preadmission environment? Yes * Can the patient safely return to the preadmission environment? No * Has this patient been hospitalized within the prior 30 days at any hospital? No Coverage Notice Reviewer: [id number] Sravani Amezquita Notice Issued Date-Time: 02/02/2019 9:54 Notice Type: IM Discharge Notice Notice Delivered To: Patient Relationship to Patient: Senior Portfolio Manager Name: Delivery Method: HAND - Hand Delivered Reta Days: Prior Verbal Notification: Recipient Understood Notice: Yes Recipient Signature: Yes Med Rec Note Co-signed by Attending: Coverage Notice Comment: Last DP export: 01/31/19 9:04 a Patient Name: MAMTA RAMIREZ Page [id number] at 1004 All edits/amendments must be made on the electronic document DICTATION DATE: 02/02/19 1003 STEAM GIGGER: CURTIS 02/02/19 1003 RPT#: [id number] DC DATE: STATUS: ADM IN [facility] [address] [place] [address] END OF REPORT
--- NOTE | 2019-02-02 10:49 | OP ---
PATIENT NAME: MAMTA RAMIREZ MEDICAL RECORD: [id number] :[birth year] LOCATION:D.[id number] ADMISSION DATE:01/26/19 SURGEON: EVELINE WHITING MD DATE OF OPERATION: 01/29/2019 PREOPERATIVE DIAGNOSES: 1. Tibial plateau fracture of the right lower extremity. 2. Bucket-handle tear of the right knee. POSTOPERATIVE DIAGNOSES: 1. Tibial plateau fracture of the right lower extremity. 2. Bucket-handle tear of the right knee. PROCEDURE: 1. Arthroscopically-assisted open reduction internal fixation of the right lateral tibial plateau. 2. Arthroscopic partial lateral meniscectomy. SURGEON: Eveline Whiting MD DIABETOLOGIST: Yumiko Graff. INTRAOPERATIVE COMPLICATIONS: None. SUMMARY OF PATHOLOGIC FINDINGS: Consistent with the preoperative diagnosis, the patient had displacement of the posterior lateral corner of the tibial plateau fracture as well as torn meniscus. Unfortunately at the time of arthroscopy, after internal fixation, the patient did have a small chondral defect, albeit small. INDICATIONS: A 63-year-old female initially presented with a minimally displaced tibial plateau fracture and consideration was made for both nonoperative treatment as well as biologic treatment. Unfortunately, she fell several times since then and sustained a displaced tibial plateau fracture. The decision was made to proceed with internal fixation prior to arthroscopy to try and avoid compartment syndrome. It was done in the order of open reduction internal fixation first using the AxSOS 3 proximal lateral tibial plate from [employer] then following with knee arthroscopy for arthroscopic partial meniscectomy. OPERATIVE SUMMARY IN DETAIL: After obtaining the appropriate preoperative orthopedic surgery consent as well as anesthetic consultation, evaluation, and clearance, the patient was brought to the operating room and placed on the operating table in supine position. After general laryngeal mask airway was administered, a tourniquet was placed on the proximal aspect of the right lower extremity. Right lower extremity was then prepped and draped in routine sterile fashion. The leg was elevated and exsanguinated and the tourniquet was inflated to 350 mmHg. A mid lateral hockey-stick style incision was incised down to the anterolateral compartment fascia. The fracture was then exposed and reduced. An AxSOS tibial plate was then brought in fluoroscopy and at the appropriate position, it was affixed to the distal tibia using compression plate. Serial and sequential fixation was then completed with locking screws as well as compression screws resulted in excellent anatomic reduction as seen on fluoroscopy in AP and lateral planes. Having completed this, the capsule was closed watertight. Arthroscopy was then established in the knee with a lateral OPERATIVE REPORT [id number] MAMTA RAMIREZ through the previously existing incision in a superior medial portal for inflow and inferior medial portal for diagnostics. Diagnostics did show the patient to have complex tear of the posterior horn of the lateral meniscus. This was serially and sequentially taken down with meniscotomes as well as arthroscopic resectors. Having completed this, the hockey-stick incision was closed with a fascial closure followed by #1 Vicryl, 2-0 Vicryl and skin karyn done by Yumiko Graff. Sterile dressings were applied. Tourniquet was deflated. The patient was awakened and taken to the recovery room in stable condition. All final needle and sponge counts were correct. TRANSINT:[id number] Voice Confirmation ID: [id number] DOCUMENT ID: [id number] HENOK ALMENDAREZ, EVELINE CHU at 1049 CC: [id number] DICTATION DATE: 01/30/19 1047 FABRICATOR INDUSTRIAL FURNACE: 01/30/19 1131 ADM IN [facility] [address] [place] [id number]
--- NOTE | 2019-02-02 12:02 | NUR ---
REPORT CALLED TO JENNIFER AT THIS [facility] AT THIS TIME. AWAITING TRANSPORTATION FOR [place]. NO QUESTIONS AT THIS TIME. CALL LIGHT WITHIN REACH.
--- NOTE | 2019-02-02 12:20 | NUR ---
OT NOTE: PT PERFORMED VERY WELL TODAY. BED MOB WITH SBA; AMB FROM BED TO BATHROOM WITH NWB AND USE OF RW WITH SBA; TRANSFERS WITH SBA; FACUNDO BARNETT WITH SBA. ABLE TO ESTHER CLEAN GOWN WITH SET UP. CONT TO C/O PAIN AND PAIN MEDS NOT WORKING FOR HER. GANESH BOWMAN, OTR/L
--- NOTE | 2019-02-02 12:36 | NUR ---
PATIENT TRANSPORTED OUT OF HOSPITAL WITH PERSONAL BELONGINGS TO [facility] FOR DC TO THE [facility].
--- NOTE | 2019-02-03 12:17 | MORECARE ---
CASE MANAGEMENT DISCHARGE SUMMARY PATIENT: MAMTA RAMIREZ UNIT: [id number] ADM DATE: 01/26/19 AGE: 63 : 57 SEX: F ROOM/BED: D.2213 AUTHOR: KEYA,DOC PHYSICIAN: REFERRING PHYSICIAN: EVELINE WHITING MD DATE OF SERVICE: 02/03/19 Discharge Plan Patient Name: MAMTA RAMIREZ Facility: [facility]:[place] : 1955 Planned Disposition: Senior Living Facility Anticipated Discharge Date: 02/02/19 Discharge Date: 02/02/2019 Expected LOS: 7 Initial Reviewer: [email or web address] Initial Review Date: 01/26/2019 Generated: 02/03/19 1:17 pm Comments DCP- Discharge Planning Updated by [id number]: Esther Pérez on 01/31/19 9:[address] TELEPHONE CALL TO THE [facility]. THEY ARE NOT EXPECTING TO ADMIT THIS PATIENT OVER THE WEEKEND. AWAITING INSURANCE AUTH. DCP- Discharge Planning Updated by [email or web address]: Stephanie Lopez on 01/30/19 2:[address] Patient is clinically accepted, waiting for insurance auth patient will go to the [facility] when her insurance approves DCP- Discharge Planning Updated by [email or web address]: Stephanie Lopez on 01/30/19 8:[address] ROSA SENT DCP- Discharge Planning Updated by [email or web address]: Stephanie Lopez on 01/29/19 11:[address] Clinical sent to [facility], spoke with Minna DCP- Discharge Planning Updated by [id number]: Stephanie Lopez on 01/28/19 2:[address] Patient Name: MAMTA RAMIREZ Admission Status: Urgent Accout number: [id number] Admission Date: 01-26-2019 : 1955 Admission Diagnosis: Attending: EVELINE WHITING Current LOS: 2 Anticipated DC Date: Planned Disposition: Senior Living Facility Primary Insurance: [employer] CHOICE PPO MCR ADVANT Discharge Planning Comments: CM met with patient to complete initial dc planning assessment. CM educated patient on the CM role and verbal consent given by patient to complete assessment. Patient lives at home by herself where she is independent with her care. At discharge patient plans to go to The [facility] and feels this is a safe discharge. RACIEL signed with The [facility] and placed in the patient's chart. Patient has cane, crutches, and a shower chair with a handicap bathroom. CM will continue to follow and will assist as needed with dc plans/needs. Amusement Park Ride Mechanic: Stephanie Lopez DCPIA - Discharge Planning Initial Assessment Updated by [email or web address]: Stephanie Lopez on 01/28/19 3:07 pm * Is the patient Alert and Oriented? Yes * How many steps to enter\exit or inside your home? * PCP Dave * [facility] * Preadmission Environment Home Alone * ADLs Independent * Equipment Cane Crutch Shower Chair * Verbal permission to speak to the caregivers and representatives has been obtained from the patient. N/A * Community resources currently utilized None * Additional services required to return to the preadmission environment? Yes * Can the patient safely return to the preadmission environment? No * Has this patient been hospitalized within the prior 30 days at any hospital? No Coverage Notice Reviewer: [id number] Sravani Amezquita Notice Issued Date-Time: 02/02/2019 9:54 Notice Type: IM Discharge Notice Notice Delivered To: Patient Relationship to Patient: Field Account Director Name: Delivery Method: HAND - Hand Delivered Reta Days: Prior Verbal Notification: Recipient Understood Notice: Yes Recipient Signature: Yes Med Rec Note Co-signed by Attending: Coverage Notice Comment: Last DP export: 02/02/19 9:04 a Patient Name: MAMTA RAMIREZ Page [id number] at 1217 All edits/amendments must be made on the electronic document DICTATION DATE: 02/03/19 1216 CERAMIC ENGINEER: CURTIS 02/03/19 1216 RPT#: [id number] DC DATE:02/02/19 STATUS: DIS IN [facility] [address] [place] [address] END OF REPORT
== END 2019-02-02 12:50 | DRG 488 ==
LOC: D.SDCHOLD 15:34 → D.MS 15:34
PROVIDERS: Internal Medicine Nephrology; ADMIT Orthopaedic Surgery; ATTEND Orthopaedic Surgery
PROC: 0SBC4ZZ Excision of Right Knee Joint, Percutaneous Endoscopic Approach (ICD-10-PCS; principal; 2019-01-29 13:00)
PROC: 0QSG04Z Reposition Right Tibia with Internal Fixation Device, Open Approach (ICD-10-PCS; 2019-01-29 13:00)
DX: S83.281A Other tear of lateral meniscus, current injury, right knee, initial encounter (principal); S82.141A Displaced bicondylar fracture of right tibia, initial encounter for closed fracture; W19.XXXA Unspecified fall, initial encounter; I25.10 Atherosclerotic heart disease of native coronary artery without angina pectoris; D64.9 Anemia, unspecified; F41.1 Generalized anxiety disorder; F43.0 Acute stress reaction

== ENCOUNTER 2019-02-27 18:38 | Emergency (ER) | payer MEDICARE, MEDICAID ==
[~2019-02-27] VITALS: Ht 160 cm; Wt 107.7 kg
[~2019-02-27 18:38] MED LIST changes: +ELIQUIS2.5 MG PO; +MELATONIN 3 MG1 TAB PO; +PERCOCET 10-321 EAC1 PO
[2019-02-27 18:56] VITALS: Ht 160 cm; Wt 107.7 kg
[2019-02-27 22:00] VITALS: BP 122/78
== END 2019-02-27 22:00 | disposition home or self-care (01) ==
LOC: D.ER 18:38
DX: M25.561 Pain in right knee (principal); F19.90 Other psychoactive substance use, unspecified, uncomplicated; Z91.81 History of falling

== ENCOUNTER 2019-03-03 17:57 | Emergency (ER) | payer MEDICARE, MEDICAID ==
[~2019-03-03] VITALS: Ht 160 cm; Wt 63.2 kg
[2019-03-03 18:00] VITALS: Ht 160 cm; Wt 63.2 kg
[2019-03-03 18:25] LABS: BASOPHILS 0.1 % (0-2); EOSINOPHILS 2.7 % (0-7); HEMATOCRIT 35.9 % (36.0-48.0); HEMOGLOBIN 11.6 g/dL (12-16); IMMATURE GRANULOCYTES 0.3 % (0-5); LYMPHOCYTES 16.3 % (15-50); MCH 30.4 pg (26.0-34.0); MCHC 32.3 g/dL (31.0-37.0); MEAN PLATELET VOLUME 9.7 fL (7.4-10.4); MONOCYTES 6.5 % (2-11); NEUTROPHILS 74.1 % (40-80); PLATELET COUNT 263 10x3/uL (130-400); RBC 3.82 10x6/uL (4.00-5.40); RDW 12.6 % (11.5-14.5); WBC 6.9 10x3/uL (4.8-10.8)
[2019-03-03 18:33] LABS: INR 0.98 (0.85-1.17); PROTIME 12.5 SECONDS (11.6-15.0)
[2019-03-03 18:34] LABS: APTT 30.1 SECONDS (22.8-39.4)
[2019-03-03 18:40] LABS: ALBUMIN 3.4 g/dL (3.4-5.0); ALKALINE PHOSPHATASE 148 U/L (46-116); ALT (SGPT) 18 U/L (10-68); BILIRUBIN - TOTAL 0.24 mg/dL (0.2-1.3); CALC OSMOLALITY 275 mosm/kg (275-300); CALCIUM 8.2 mg/dL (8.5-10.1); CARBON DIOXIDE 30.6 mmol/L (21.0-32.0); CHLORIDE - SERUM 100 mmol/L (98-107); CREATININE - SERUM 0.9 mg/dL (0.6-1.3); GLUCOSE 106 mg/dL (74-106); POTASSIUM - SERUM 3.7 mmol/L (3.5-5.1); PROTEIN - SERUM 7.5 g/dL (6.4-8.2); SODIUM 138 mmol/L (136-145); UREA NITROGEN 13 mg/dL (7-18); eGFR NON AFRICAN AMERICAN 67 mL/min (90-120)
[2019-03-03 18:49] LABS: AMYLASE - SERUM 14 U/L (25-115); CKMB 0.5 U/L (0.0-3.6); CREATINE KINASE 52 UL (21-215); LIPASE 58 U/L (73-393); MAGNESIUM - SERUM 1.9 mg/dL (1.8-2.4)
[2019-03-03 18:50] LABS: TROPONIN-I < 0.017 ng/mL (0.000-0.060)
[2019-03-03 18:57] VITALS: BP 162/72
== END 2019-03-03 20:33 | disposition left against medical advice (07) ==
LOC: D.ER 17:57
PROVIDERS: Family Medicine
DX: R07.9 Chest pain, unspecified (principal)

== ENCOUNTER 2019-10-17 16:53 | Emergency (ER) | payer MEDICARE ==
[~2019-10-17] VITALS: Ht 160 cm; Wt 103.6 kg
[2019-10-17 17:15] VITALS: Ht 160 cm; Wt 103.6 kg
[2019-10-17] MEDS ORDERED: VISTARIL25 MG PO (20:18)
[2019-10-17] MEDS ORDERED: ZPAK PO (20:28)
[2019-10-17 20:44] VITALS: BP 108/60
== END 2019-10-17 20:44 | disposition home or self-care (01) ==
LOC: D.ER 16:53
DX: F41.9 Anxiety disorder, unspecified (principal); J32.9 Chronic sinusitis, unspecified; Z86.73 Personal history of transient ischemic attack (TIA), and cerebral infarction without residual deficits

== ENCOUNTER 2019-10-26 06:35 | Emergency (ER) | payer MEDICARE ==
[~2019-10-26] VITALS: Ht 160 cm; Wt 99.8 kg
[~2019-10-26 06:35] MED LIST changes: +VISTARIL25 MG PO; +ZPAK PO
[2019-10-26 06:40] VITALS: Ht 160 cm; Wt 99.8 kg
[2019-10-26 07:02] LABS: EPITHELIAL CELLS 0-5 /hpf (0-5); RED CELLS - URINE 0-5 /hpf (0-5); WHITE CELLS - URINE 25-50 /hpf (NEGATIVE)
[2019-10-26 07:03] LABS: BACTERIA MANY /hpf (NEGATIVE)
[2019-10-26] MEDS ORDERED: MACROBID100 MG PO (07:40)
[2019-10-26 08:15] VITALS: BP 158/90
[2019-10-26] MEDS ORDERED: ZOFRAN ODT4 MG/UDTAB PO (08:20)
== END 2019-10-26 08:24 | disposition home or self-care (01) ==
LOC: D.ER 06:35
PROVIDERS: Emergency Medicine
DX: G43.909 Migraine, unspecified, not intractable, without status migrainosus (principal); N39.0 Urinary tract infection, site not specified; Z86.73 Personal history of transient ischemic attack (TIA), and cerebral infarction without residual deficits; R11.10 Vomiting, unspecified; M54.5 Low back pain

== ENCOUNTER 2019-12-12 15:55 | Emergency (ER) | payer MEDICARE ==
[~2019-12-12] VITALS: Ht 160 cm; Wt 102.7 kg
[~2019-12-12 15:55] MED LIST changes: +MACROBID100 MG PO; +ZOFRAN ODT4 MG/UDTAB PO
[2019-12-12 16:02] VITALS: Ht 160 cm; Wt 102.7 kg
[2019-12-12] MEDS ORDERED: BACLOFEN10 MG PO (16:07)
[2019-12-12 17:06] LABS: BASOPHILS 0.2 % (0-2); EOSINOPHILS 2.3 % (0-7); HEMATOCRIT 38.7 % (36.0-48.0); HEMOGLOBIN 12.3 g/dL (12-16); IMMATURE GRANULOCYTES 0.3 % (0-5); LYMPHOCYTES 27.5 % (15-50); MCH 28.9 pg (26.0-34.0); MCHC 31.8 g/dL (31.0-37.0); MCV 90.8 fL (80.0-100.0); MEAN PLATELET VOLUME 9.5 fL (7.4-10.4); MONOCYTES 6.4 % (2-11); NEUTROPHILS 63.3 % (40-80); PLATELET COUNT 410 10x3/uL (130-400); RBC 4.26 10x6/uL (4.00-5.40); RDW 14.3 % (11.5-14.5); WBC 10.3 10x3/uL (4.8-10.8)
[2019-12-12 17:08] LABS: APPEARANCE CLEAR (CLEAR); BILIRUBIN NEGATIVE (NEGATIVE); COLOR YELLOW (YELLOW); GLUCOSE NEGATIVE (NEGATIVE); KETONE NEGATIVE (NEGATIVE); NITRITE NEGATIVE (NEGATIVE); PROTEIN NEGATIVE (NEGATIVE); UROBILINOGEN NORMAL (NORMAL)
[2019-12-12 17:13] LABS: UDS - AMPHET NEGATIVE QUAL (NEGATIVE); UDS - BARB NEGATIVE QUAL (NEGATIVE); UDS - BENZO NEGATIVE QUAL (NEGATIVE); UDS - COCAINE NEGATIVE QUAL (NEGATIVE); UDS - OPIATE NEGATIVE QUAL (NEGATIVE); UDS - PCP NEGATIVE QUAL (NEGATIVE); UDS - THC NEGATIVE QUAL (NEGATIVE)
[2019-12-12 17:14] LABS: CALC OSMOLALITY 282 mosm/kg (275-300); CARBON DIOXIDE 31.5 mmol/L (21.0-32.0); CHLORIDE - SERUM 103 mmol/L (98-107); CREATININE - SERUM 0.9 mg/dL (0.6-1.3); GLUCOSE 105 mg/dL (74-106); POTASSIUM - SERUM 3.8 mmol/L (3.5-5.1); SODIUM 141 mmol/L (136-145); UREA NITROGEN 19 mg/dL (7-18); eGFR NON AFRICAN AMERICAN 67 mL/min (90-120)
[2019-12-12 17:27] LABS: ALBUMIN 3.5 g/dL (3.4-5.0); ALKALINE PHOSPHATASE 125 U/L (30-120); ALT (SGPT) 17 U/L (10-68); AMYLASE - SERUM 23 U/L (25-115); LIPASE 113 U/L (73-393); PROTEIN - SERUM 7.6 g/dL (6.4-8.2); THYROID STIMULATING HORMONE 6.09 uIU/mL (0.36-3.74); TROPONIN-I < 0.017 ng/mL (0.000-0.060)
[2019-12-12] MEDS ORDERED: PHENERGAN25 M1 PO (19:44)
[2019-12-12 21:10] VITALS: BP 142/86
== END 2019-12-12 21:10 | disposition home or self-care (01) ==
LOC: D.ER 15:55
PROVIDERS: Family Medicine
DX: R11.2 Nausea with vomiting, unspecified (principal); F41.9 Anxiety disorder, unspecified; K21.9 Gastro-esophageal reflux disease without esophagitis; R32 Unspecified urinary incontinence; Z86.73 Personal history of transient ischemic attack (TIA), and cerebral infarction without residual deficits